=== PATIENT | male | born 1995 | race Caucasian/White ===

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

== ENCOUNTER 2017-01-19 21:21 | Emergency (ER) | payer OTHER ==
[~2017-01-19] VITALS: Ht 182.9 cm; Wt 56.8 kg
[~2017-01-19 21:21] MED LIST: IBUP-1022 PO; KEFL500C17 PO
[2017-01-19] MEDS ORDERED: ONDANSETRON 4MG/2ML VIAL (J2405) IV ONE (22:30)
[2017-01-19] MEDS ORDERED: NS 1,000 ML IV ONE (22:30)
[2017-01-19 22:48] LABS: BASO % 0.3 % (0.0-1.0); IMMATURE GRANULOCYTE % 0.3 % (0-0); LYMPH # 0.8 10^3/uL (1.5-6.5); MEAN CORPUSCULAR HEMOGLOBIN 29.4 pg (27.0-33.0); MEAN CORPUSCULAR HGB CONC 34.4 g/dl (32.0-36.5); MEAN CORPUSCULAR VOLUME 85.4 fl (80.0-96.0); MONO # 0.9 10^3/uL (0.0-0.8); MONO % 7.3 % (0.0-5.0); NEUTROPHILS # 10.1 10^3/uL (1.8-7.7); NEUTROPHILS % 85.1 % (36.0-66.0); PLATELET COUNT, AUTOMATED 251 10^3/uL (150-450); RED CELL DISTRIBUTION WIDTH 13.1 % (11.5-14.5); WHITE BLOOD COUNT 11.8 10^3/uL (4.0-10.0)
[2017-01-19 22:49] LABS: SUSPECT SAMPLE POS FLAG
[2017-01-19 23:16] LABS: ANION GAP 7 MEQ/L (8-16); BLOOD UREA NITROGEN 22 MG/DL (7-18); CARBON DIOXIDE LEVEL 30 MEQ/L (21-32); CHLORIDE LEVEL 102 MEQ/L (98-107); CREATININE FOR GFR 1.09 MG/DL (0.70-1.30); GLUCOSE, FASTING 111 MG/DL (70-105); POTASSIUM SERUM 4.3 MEQ/L (3.5-5.1); SODIUM LEVEL 139 MEQ/L (136-145)
[2017-01-19 23:17] LABS: ALBUMIN 4.8 GM/DL (3.2-5.2); ALBUMIN/GLOBULIN RATIO 1.55 (1.00-1.93); ALKALINE PHOSPHATASE 118 U/L (45-117); ALT/SGPT 27 U/L (12-78); AST/SGOT 18 U/L (7-37); BILIRUBIN,DIRECT 0.3 MG/DL (0.0-0.2); CALCIUM LEVEL 9.7 MG/DL (8.5-10.1); TOTAL PROTEIN 7.9 GM/DL (6.4-8.2)
[2017-01-19] MEDS ORDERED: ZOFR4TAB3 PO (23:30)
[2017-01-19] MEDS ORDERED: IBUP-1022 PO (23:30)
[2017-01-19 23:36] VITALS: BP 127/67
== END 2017-01-19 23:46 | disposition home or self-care (01) ==
LOC: M ED 21:21
DX: R10.84 Generalized abdominal pain (principal); R11.2 Nausea with vomiting, unspecified
CPT/HCPCS: 80048; 80076; 81001; 83690; 85025; 87804; 96361; 96374; 99284; J2405

== ENCOUNTER 2017-05-15 18:37 | Inpatient (IN) | payer MEDICAID, OTHER ==
[2017-05-15 18:05] LABS: HEMATOCRIT 43.8 % (42.0-52.0); HEMOGLOBIN 14.9 g/dl (14.0-18.0); MEAN CORPUSCULAR HEMOGLOBIN 29.3 pg (27.0-33.0); MEAN CORPUSCULAR VOLUME 86.1 fl (80.0-96.0); PLATELET COUNT, AUTOMATED 231 10^3/uL (150-450); RED BLOOD COUNT 5.09 10^6/uL (4.30-6.10); RED CELL DISTRIBUTION WIDTH 12.5 % (11.5-14.5); WHITE BLOOD COUNT 15.1 10^3/uL (4.0-10.0)
[2017-05-15 18:31] LABS: AMPHETAMINES LEVEL URINE NEGATIVE (NEGATIVE); BARBITURATES URINE NEGATIVE (NEGATIVE); BENZODIAZEPINES URINE NEGATIVE (NEGATIVE); CANNABINOIDS URINE POSITIVE (NEGATIVE); COCAINE METABOLITE URINE NEGATIVE (NEGATIVE); METHADONE URINE NEGATIVE (NEGATIVE); OPIATES URINE NEGATIVE (NEGATIVE); PHENCYCLIDINE URINE NEGATIVE (NEGATIVE)
[2017-05-15 18:40] LABS: ACETAMINOPHEN LEVEL < 2.0 UG/ML (10.0-30.0); ALBUMIN 4.4 GM/DL (3.2-5.2); ALBUMIN/GLOBULIN RATIO 1.52 (1.00-1.93); ALKALINE PHOSPHATASE 124 U/L (45-117); ALT/SGPT 18 U/L (12-78); ANION GAP 6 MEQ/L (8-16); AST/SGOT 15 U/L (7-37); BILIRUBIN,DIRECT 0.1 MG/DL (0.0-0.2); BILIRUBIN,TOTAL 0.4 MG/DL (0.2-1.0); BLOOD UREA NITROGEN 20 MG/DL (7-18); CALCIUM LEVEL 9.2 MG/DL (8.5-10.1); CARBON DIOXIDE LEVEL 29 MEQ/L (21-32); CHLORIDE LEVEL 106 MEQ/L (98-107); CREATININE FOR GFR 0.97 MG/DL (0.70-1.30); GLUCOSE, FASTING 111 MG/DL (70-100); POTASSIUM SERUM 3.9 MEQ/L (3.5-5.1); SALICYLATE LEVEL < 1.7 MG/DL (5.0-30.0); SODIUM LEVEL 141 MEQ/L (136-145); THYROID STIMULATING HORMONE 0.677 uIU/ML (0.463-3.98); TOTAL PROTEIN 7.3 GM/DL (6.4-8.2)
[2017-05-15 18:42] LABS: ETHYL ALCOHOL (ETHANOL) < 0.003 % (0.000-0.010)
[2017-05-15] MEDS ORDERED: traZODone 50 MG TAB PO (19:30)
[2017-05-15] MEDS ORDERED: MAALOX 30 ML SUSP *UDC PO (19:30)
[2017-05-15] MEDS ORDERED: ACETAMINOPHEN TAB 650MG DOSE (2X325MG) PO (19:30)
[2017-05-15] MEDS ORDERED: MOM 30ML SUSPENSION UDC PO (19:30)
[2017-05-16] MEDS: IBUPROFEN 600 MG TAB PO (10:20)
[2017-05-16] MEDS: QUEtiapine FUMARATE 50 MG TAB PO (21:23)
[2017-05-17] MEDS: IBUPROFEN 600 MG TAB PO (08:08)
[2017-05-17] MEDS: PALIPERIDONE 3 MG ER TAB (INVEGA) PO (20:48)
[2017-05-17] MEDS: QUEtiapine FUMARATE 50 MG TAB PO (20:48)
[2017-05-18] MEDS: PALIPERIDONE 3 MG ER TAB (INVEGA) PO ×2 (08:05→20:42)
[2017-05-18] MEDS ORDERED: PALIPERIDONE 3 MG ER TAB (INVEGA) PO (09:00)
[2017-05-18] MEDS: QUEtiapine FUMARATE 50 MG TAB PO (20:42)
[2017-05-19] MEDS: IBUPROFEN 600 MG TAB PO (08:14)
[2017-05-19] MEDS: PALIPERIDONE 3 MG ER TAB (INVEGA) PO (08:14)
== END 2017-05-19 14:07 | disposition home or self-care (01) | DRG 885 ==
LOC: M ED 18:37 → M ED INP 19:24 → M PSY 20:20
DX: F29 Unspecified psychosis not due to a substance or known physiological condition (principal); F19.94 Other psychoactive substance use, unspecified with psychoactive substance-induced mood disorder; F12.90 Cannabis use, unspecified, uncomplicated; Z88.2 Allergy status to sulfonamides; Z87.891 Personal history of nicotine dependence

== ENCOUNTER 2017-06-19 17:50 | Emergency (ER) | payer OTHER | END 2017-06-19 18:58 | disposition home or self-care (01) | LOC: M ED 17:50 | DX: Z76.0 Encounter for issue of repeat prescription (principal); F41.9 Anxiety disorder, unspecified; F33.9 Major depressive disorder, recurrent, unspecified; F20.9 Schizophrenia, unspecified; Z79.899 Other long term (current) drug therapy; Z88.2 Allergy status to sulfonamides | CPT/HCPCS: 99282 ==

== ENCOUNTER 2018-02-05 15:38 | Emergency (ER) | payer OTHER ==
[2018-02-05] MEDS: NAPROXEN 250 MG TAB PO (16:14)
== END 2018-02-05 17:05 | disposition home or self-care (01) ==
LOC: M ED 15:38
DX: S93.401A Sprain of unspecified ligament of right ankle, initial encounter (principal); X50.1XXA Overexertion from prolonged static or awkward postures, initial encounter; Y92.9 Unspecified place or not applicable; Y93.9 Activity, unspecified; Y99.9 Unspecified external cause status; F41.9 Anxiety disorder, unspecified; F20.9 Schizophrenia, unspecified; Z72.0 Tobacco use; Z88.2 Allergy status to sulfonamides
CPT/HCPCS: 73610

== ENCOUNTER 2018-06-12 23:49 | Emergency (ER) | payer OTHER ==
[~2018-06-12] VITALS: Ht 182.9 cm; Wt 59.1 kg
[~2018-06-12 23:49] MED LIST changes: +NAPR-837 PO; +PALI1TAB2 PO; +QUET5TAB PO; +RISP1TAB42 PO; +ZOFR4TAB14 PO
[2018-06-13] MEDS ORDERED: SERO50TA PO (00:07)
[2018-06-13 02:15] VITALS: BP 129/73
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
== END 2018-06-13 02:10 | disposition home or self-care (01) ==
LOC: M ED 23:49
DX: S63.92XA Sprain of unspecified part of left wrist and hand, initial encounter (principal); W51.XXXA Accidental striking against or bumped into by another person, initial encounter; Y92.099 Unspecified place in other non-institutional residence as the place of occurrence of the external cause; Y93.89 Activity, other specified; Y99.9 Unspecified external cause status; Z72.0 Tobacco use; F12.10 Cannabis abuse, uncomplicated; Z79.899 Other long term (current) drug therapy; Z88.2 Allergy status to sulfonamides

== ENCOUNTER 2018-07-29 23:55 | Emergency (ER) | payer OTHER ==
[~2018-07-29] VITALS: Ht 182.9 cm; Wt 59.1 kg
[~2018-07-29 23:55] MED LIST changes: +SERO50TA PO
[2018-07-30] MEDS ORDERED: TETANUS/DIPHTHERIA TOX ADSORB ADULT 0.5ML SYR/VIAL (90714) IM ONE (01:30)
[2018-07-30] MEDS ORDERED: ACETAMINOPHEN 500 MG TAB PO ONE (01:30)
[2018-07-30] MEDS ORDERED: IBUPROFEN 800 MG TAB PO ONE (01:45)
[2018-07-30] MEDS ORDERED: DERMABOND TOPICAL SKIN ADHESIVE TOP ONE (01:45)
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
[2018-07-30 03:30] VITALS: BP 130/76
== END 2018-07-30 03:33 | disposition home or self-care (01) ==
LOC: M ED 23:55
DX: S01.81XA Laceration without foreign body of other part of head, initial encounter (principal); Y04.8XXA Assault by other bodily force, initial encounter; Y92.410 Unspecified street and highway as the place of occurrence of the external cause; F29 Unspecified psychosis not due to a substance or known physiological condition; Z79.899 Other long term (current) drug therapy

== ENCOUNTER → 2019-08-08 | Outpatient (CLI) | payer OTHER ==
[2019-08-08 15:12] LABS: BASO % 0.5 % (0.0-1.0); EOS % 0.5 % (0.0-3.0); HEMATOCRIT 46.5 % (42.0-52.0); HEMOGLOBIN 15.2 g/dl (13.5-17.5); LYMPH # 1.8 10^3/uL (1.5-5.0); MEAN CORPUSCULAR HEMOGLOBIN 29.6 pg (27.0-33.0); MEAN CORPUSCULAR HGB CONC 32.7 g/dl (32.0-36.5); MEAN CORPUSCULAR VOLUME 90.5 fl (80.0-96.0); MONO # 0.7 10^3/uL (0.0-0.8); MONO % 11.6 % (0.0-5.0); NEUTROPHILS # 3.1 10^3/uL (1.5-8.5); NEUTROPHILS % 55.2 % (36.0-66.0); PLATELET COUNT, AUTOMATED 194 10^3/uL (150-450); RED BLOOD COUNT 5.14 10^6/uL (4.30-6.10); WHITE BLOOD COUNT 5.6 10^3/uL (4.0-10.0)
[2019-08-08 15:29] LABS: HEMOGLOBIN A1c 5.1 %
[2019-08-08 15:46] LABS: ALBUMIN 4.3 GM/DL (3.2-5.2); ALT/SGPT 18 U/L (12-78); BILIRUBIN,TOTAL 0.6 MG/DL (0.2-1.0); BLOOD UREA NITROGEN 15 MG/DL (7-18); CALCIUM LEVEL 8.8 MG/DL (8.5-10.1); CARBON DIOXIDE LEVEL 30 MEQ/L (21-32); CHLORIDE LEVEL 107 MEQ/L (98-107); CHOLESTEROL LEVEL 101 MG/DL (<200); CHOLESTEROL RISK RATIO 1.942 (<5); CREATININE FOR GFR 0.95 MG/DL (0.70-1.30); GLOMERULAR FILTRATION RATE > 60.0 (>60); GLUCOSE, FASTING 89 MG/DL (70-100); HDL CHOLESTEROL 52 MG/DL (>40); LDL CHOLESTEROL 43 MG/DL (<100); NON-HDL-C 49 MG/DL; SODIUM LEVEL 142 MEQ/L (136-145); THYROID STIMULATING HORMONE 0.795 uIU/ML (0.358-3.740); TOTAL PROTEIN 6.7 GM/DL (6.4-8.2); TRIGLYCERIDES LEVEL 29 MG/DL (<150)
[2019-08-08 15:47] LABS: TOTAL 25(OH) VITAMIN D 53.1 NG/ML (30.0-100.0); VITAMIN B12 LEVEL 345 PG/ML (247-911)
== END ==
LOC: M PLALAB 13:46
PROVIDERS: ATTEND Nurse Practitioner Psychiatric/Mental Health
DX: F12.20 Cannabis dependence, uncomplicated (principal); F28 Other psychotic disorder not due to a substance or known physiological condition

== ENCOUNTER 2019-10-19 16:01 | Emergency (ER) | payer OTHER ==
[~2019-10-19] VITALS: Ht 182.9 cm; Wt 61.3 kg
[2019-10-19] MEDS ORDERED: HYDR-3910 PO (16:24)
[2019-10-19] MEDS ORDERED: methylPREDNISolone 125MG 2ML VIAL IV ONE (17:30)
[2019-10-19] MEDS ORDERED: FAMOTIDINE INJ 20MG/2ML VIAL (S0028 PER 1) IVP ONE (17:30)
[2019-10-19] MEDS ORDERED: EPIP0.3I2 IM (19:27)
[2019-10-19 20:11] VITALS: BP 110/70
--- NOTE | 2019-11-01 10:17 | ECGEPIP ---
[facility] - ED Test Date: 2019-10-19 Pat Name: SHAYE OJEDA Department: Room: - Gender: Male Source [employer]: : 1995 Requested By: KAYKAY Lyon Order Number: [id number] Reading MD: Claudia Frederick Measurements Intervals [place] Rate: 70 P: 74 VA: 150 QRS: 69 QRSD: 121 T: 71 QT: 380 QTc: 411 Interpretive Statements SINUS RHYTHM POSSIBLE RIGHT VENTRICULAR CONDUCTION DELAY SEE SCANNED DOWNTIME REPORT
== END 2019-10-19 20:13 | disposition home or self-care (01) ==
LOC: M ED 16:01
DX: T63.441A Toxic effect of venom of bees, accidental (unintentional), initial encounter (principal); Y92.9 Unspecified place or not applicable; Y93.9 Activity, unspecified; Y99.9 Unspecified external cause status; F17.200 Nicotine dependence, unspecified, uncomplicated; Z88.1 Allergy status to other antibiotic agents; Z91.030 Bee allergy status
CPT/HCPCS: 93005; 93041; 94760; 96374; 99284; J2930

== ENCOUNTER 2020-07-10 18:37 | Emergency (ER) | payer OTHER ==
[~2020-07-10] VITALS: Ht 182.9 cm; Wt 59.1 kg
[~2020-07-10 18:37] MED LIST changes: +EPIP0.3I2 IM; +HYDR-3910 PO; +QUET50TA3 PO; -QUET5TAB PO
--- NOTE | 2020-07-10 20:08 | REP ---
INDICATION: testicular pain. COMPARISON: None. TECHNIQUE: Real-time sonographic evaluation of scrotum and contents performed. FINDINGS: The testicles are normal in size and echotexture, right testicle measuring 5.0 x 2.2 x 3.2 cm and left testicle 4.8 x 2.3 x 2.9 cm. There is no testicular mass or torsion. Blood flow is seen in each testicle with duplex Doppler evaluation. There is a 2 mm cyst in the right epididymis. There is a 3 mm calcification in the right scrotum. Prominent vessels in the left scrotum inferiorly suggest a small varicocele. IMPRESSION: No testicular mass or torsion. Small left varicocele. <Electronically signed by Kunal Gee > 07/10/202004
[2020-07-10 21:03] VITALS: BP 118/64
--- NOTE | 2020-07-10 21:49 | REPVR ---
PROCEDURE INFORMATION: Exam: US Pelvis Limited, Transabdominal, Soft tissue Exam date and time: 07/10/2020 8:42 PM Age: 25 years old Clinical indication: Pain; Other: Lt groin; Additional info: L inguinal pain following heavy lifting, RO hernia TECHNIQUE: Imaging protocol: Real-time transabdominal pelvic ultrasound with image documentation. Limited exam. Exam focused on the soft tissue. COMPARISON: Pelvis, limited US 12/03/2016 11:28 AM FINDINGS: Soft tissues: It appears that there are varices in the left inguinal canal similar to the ultrasound of 2017. I would recommend a CT scan of the pelvis with contrast for further evaluation of this. There is no evidence of hernia on the right. No herniated bowel can be identified on the left however there are the prominent vessels. IMPRESSION: Suspect varices at the left groin and recommend correlation with a CT scan of the pelvis with contrast. Electronically signed by: Adam Hernandez On 07/10/2020 21:48:49 PM
== END 2020-07-10 21:05 | disposition home or self-care (01) ==
LOC: M ED 18:37
DX: I86.1 Scrotal varices (principal); F20.9 Schizophrenia, unspecified; F33.9 Major depressive disorder, recurrent, unspecified; F41.9 Anxiety disorder, unspecified; Z79.899 Other long term (current) drug therapy; Z88.2 Allergy status to sulfonamides; Z91.030 Bee allergy status

== ENCOUNTER → 2020-07-15 | Outpatient (REF) | payer OTHER ==
[2020-07-15 12:55] LABS: APPEARANCE, URINE CLEAR (CLEAR); BACTERIA, URINE AUTO NEGATIVE (NEGATIVE); BILIRUBIN, URINE AUTO NEGATIVE (NEGATIVE); BLOOD, URINE BLOOD NEGATIVE (NEGATIVE); COLOR, URINE YELLOW (YELLOW); GLUCOSE, URINE (UA) AUTO NEGATIVE (NEGATIVE); KETONE, URINE AUTO NEGATIVE (NEGATIVE); LEUKOCYTE ESTERASE, URINE AUTO NEGATIVE (NEGATIVE); NITRITE, URINE AUTO NEGATIVE (NEGATIVE); PROTEIN, URINE AUTO NEGATIVE (NEGATIVE); RBC, URINE AUTO 0 /HPF (0-3); SPECIFIC GRAVITY URINE AUTO 1.024 (1.002-1.035); SQUAMOUS EPITHELIAL CELL UR AU 0 /HPF (0-6); UROBILINOGEN, URINE AUTO 0.2 mg/dL (0.0-2.0); WBC, URINE AUTO 0 /HPF (0-3)
== END ==
LOC: M SMT 12:33
PROVIDERS: ATTEND Nurse Practitioner Women's Health
DX: R10.30 Lower abdominal pain, unspecified (principal)

== ENCOUNTER → 2020-07-17 | Outpatient (CLI) | payer OTHER ==
[~2020-07-17] MED LIST changes: +ISOVUE-370 76% 100ML VIAL As Ordered ONE
--- NOTE | 2020-07-17 14:17 | REPVR ---
PROCEDURE INFORMATION: Exam: CT Pelvis With Contrast Exam date and time: 07/17/2020 1:52 PM Age: 25 years old Clinical indication: Other: Groin pain, varicocele TECHNIQUE: Imaging protocol: Computed tomography images of the pelvis with intravenous contrast. Radiation optimization: All CT scans at this facility use at least one of these dose optimization techniques: automated exposure control; mA and/or kV adjustment per patient size (includes targeted exams where dose is matched to clinical indication); or iterative reconstruction. Contrast material: ISOVUE 370; Contrast volume: 100 ml; Contrast route: INTRAVENOUS (IV); COMPARISON: Pelvis, limited US 07/10/2020 8:46 PM FINDINGS: Stomach and bowel: Prominent stool. Diverticula, without pericolonic inflammation. Appendix: No acute appendicitis. Intraperitoneal space: Small quantity of dependent free fluid in the pelvis. Lymph nodes: Subcentimeter lymph nodes. Urinary bladder: Bladder dilatation. Reproductive: Normal as visualized. Bones/joints: No acute osseous pathology. Soft tissues: No focal hernia. Mild infiltration of anterior subcutaneous fat. Other findings: Note evaluation of scrotal pathology is limited on CT. IMPRESSION: 1. Small quantity of dependent free fluid in the pelvis. 2. Additional findings as described above. Electronically signed by: Ever Flores On 07/17/2020 14:16:59 PM
== END ==
LOC: M RAD 13:33
PROVIDERS: ATTEND Nurse Practitioner Women's Health
DX: R10.30 Lower abdominal pain, unspecified (principal); I86.1 Scrotal varices
CPT/HCPCS: 72193; Q9967

== ENCOUNTER 2021-02-27 11:06 | Emergency (ER) | payer OTHER ==
[~2021-02-27] VITALS: Ht 182.9 cm; Wt 57.4 kg
[~2021-02-27 11:06] MED LIST changes: -ISOVUE-370 76% 100ML VIAL As Ordered ONE; -QUET50TA3 PO; +QUET50TA4 PO
[2021-02-27] MEDS ORDERED: OMEP-218 (11:30)
[2021-02-27] MEDS ORDERED: HYDR-3363 (11:30)
[2021-02-27] MEDS ORDERED: ZOFR4TAB16 PO (16:10)
[2021-02-27] MEDS ORDERED: ONDANSETRON 4 MG ORAL DISINTEGRATING TAB PO ONE (16:10)
[2021-02-27 16:38] VITALS: BP 134/89
== END 2021-02-27 16:38 | disposition home or self-care (01) ==
LOC: M ED 11:06
DX: J06.9 Acute upper respiratory infection, unspecified (principal); R11.2 Nausea with vomiting, unspecified; Z88.0 Allergy status to penicillin; Z88.2 Allergy status to sulfonamides; Z79.899 Other long term (current) drug therapy
CPT/HCPCS: 99283; Q0162; U0003

== ENCOUNTER → 2021-07-08 | Outpatient (CLI) | payer OTHER ==
[~2021-07-08] MED LIST changes: +HYDR-3363; +OMEP-173; +ZOFR4TAB16 PO
== END ==
LOC: M EKG 10:31
PROVIDERS: ATTEND Nurse Practitioner Psychiatric/Mental Health
DX: F90.0 Attention-deficit hyperactivity disorder, predominantly inattentive type (principal)

== ENCOUNTER → 2022-08-05 | Outpatient (REF) | payer OTHER ==
[2022-08-07 06:09] LABS: MUMPS VIRUS IgG ANTIBODY <9.0 AU/mL (Immune >10.9); RUBEOLA IgG ANTIBODY 47.9 AU/mL (Immune >16.4)
== END ==
LOC: M LAB REF 16:21
PROVIDERS: ATTEND Family Medicine Addiction Medicine
DX: Z76.89 Persons encountering health services in other specified circumstances (principal)

== ENCOUNTER 2023-03-26 08:47 | Inpatient (IN) | payer MEDICAID, OTHER ==
[~2023-03-26] VITALS: Ht 182.9 cm; Wt 62.2 kg
[~2023-03-26 08:47] MED LIST changes: -OMEP-173; +OMEP-173 PO
[2023-03-26] MEDS ORDERED: MED REC IN PROGRESS XX SCH (09:40)
[2023-03-26 10:10] LABS: HEMOGLOBIN 16.1 g/dl (13.5-17.5); MEAN CORPUSCULAR HEMOGLOBIN 29.9 pg (27.0-33.0); MEAN CORPUSCULAR VOLUME 85.5 fl (80.0-96.0); PLATELET COUNT, AUTOMATED 245 10^3/uL (150-450); RED BLOOD COUNT 5.38 10^6/uL (4.30-6.10); WHITE BLOOD COUNT 6.2 10^3/uL (4.0-10.0)
[2023-03-26 10:39] LABS: ETHYL ALCOHOL (ETHANOL) < 0.003 % (0.000-0.010)
[2023-03-26 10:40] LABS: ALBUMIN 4.4 G/DL (3.2-5.2); ALKALINE PHOSPHATASE 94 U/L (46-116); ALT/SGPT 28 U/L (7.0-40); AST/SGOT 24 U/L (<34); BILIRUBIN,DIRECT 0.3 MG/DL (<0.4); BILIRUBIN,TOTAL 0.9 MG/DL (0.3-1.2); BLOOD UREA NITROGEN 21 MG/DL (9-23); CALCIUM LEVEL 9.5 MG/DL (8.5-10.1); CARBON DIOXIDE LEVEL 26 MMOL/L (20-31); CHLORIDE LEVEL 104 MMOL/L (98-107); CREATININE FOR GFR 0.92 MG/DL (0.70-1.30); GLOMERULAR FILTRATION RATE > 60.0 (>60); GLUCOSE, FASTING 102 MG/DL (60-100); SALICYLATE LEVEL < 3.0 MG/DL (<30); SODIUM LEVEL 139 MMOL/L (136-145); TOTAL PROTEIN 7.3 G/DL (5.7-8.2)
[2023-03-26 10:43] LABS: THYROID STIMULATING HORMONE 1.452 uIU/ML (0.55-4.78)
[2023-03-26 11:27] LABS: AMPHETAMINES LEVEL URINE NEGATIVE (NEGATIVE); BARBITURATES URINE NEGATIVE (NEGATIVE); BENZODIAZEPINES URINE NEGATIVE (NEGATIVE); COCAINE METABOLITE URINE NEGATIVE (NEGATIVE); METHADONE URINE NEGATIVE (NEGATIVE); OPIATES URINE NEGATIVE (NEGATIVE); PHENCYCLIDINE URINE NEGATIVE (NEGATIVE)
[2023-03-26 11:33] LABS: CANNABINOIDS URINE POSITIVE (NEGATIVE)
[2023-03-26] MEDS ORDERED: ALBU8.5H INH (11:40)
[2023-03-26] MEDS ORDERED: traZODone 50 MG TAB PO PRN (11:40)
[2023-03-26] MEDS ORDERED: diphenhydrAMINE 25MG CAP PO PRN (11:40)
[2023-03-26] MEDS ORDERED: MOM 30ML SUSPENSION UDC PO PRN (11:40)
[2023-03-26] MEDS ORDERED: OLANZapine 5 MG TAB PO PRN (11:40)
[2023-03-26] MEDS ORDERED: IBUPROFEN 400MG TAB PO PRN (11:40)
[2023-03-26] MEDS ORDERED: ACETAMINOPHEN TAB 650MG DOSE (2X325MG) PO PRN (11:40)
[2023-03-26] MEDS ORDERED: MAALOX 30 ML SUSP *UDC PO PRN (11:40)
[2023-03-26] MEDS ORDERED: HOME MED LIST COMPLETE! XX SCH (11:45)
[2023-03-26] MEDS: NICOTINE 21MG/24HR 1 EA TRANSDERMAL TD ONE (12:26)
[2023-03-26] MEDS: OMEPRAZOLE 20MG CAP PO SCH (22:31)
[2023-03-26] MEDS: RAMELTEON 8 MG TAB (ROZEREM) PO PRN (22:31)
[2023-03-27 06:36] VITALS: BP 120/69; TEMP 98.4; O2SAT 98
[2023-03-27 09:00] VITALS: BP 120/69; TEMP 98.4; O2SAT 98
[2023-03-27] MEDS ORDERED: ALBUTEROL 90 MCG/ACT 8GM HFA INHALER INH STA (14:34)
[2023-03-27 14:40] VITALS: BP 143/94; TEMP 99.4; O2SAT 100
[2023-03-27] MEDS: ALBUTEROL 90 MCG/ACT 8GM HFA INHALER INH STA (14:43)
[2023-03-27] MEDS: NICOTINE 21MG/24HR 1 EA TRANSDERMAL TD SCH (15:08)
[2023-03-27 16:59] VITALS: BP 127/81; TEMP 97.6; O2SAT 100
[2023-03-27] MEDS: ALBUTEROL 90 MCG/ACT 8GM HFA INHALER INH PRN (21:05)
[2023-03-28] MEDS ORDERED: OMEPRAZOLE 20MG CAP PO SCH (09:00)
[2023-03-28] MEDS: OMEPRAZOLE 20MG CAP PO SCH (10:46)
[2023-03-28 17:00] VITALS: BP 132/92; TEMP 98.6; O2SAT 100
[2023-03-29] MEDS: OLANZapine 5 MG TAB PO SCH (10:54)
[2023-03-29 18:16] VITALS: BP 134/95; TEMP 97.3; O2SAT 99
[2023-03-30 06:40] VITALS: BP 137/75; TEMP 97.8; O2SAT 100
[2023-03-30] MEDS ORDERED: OMEP-173 PO (09:49)
[2023-03-30] MEDS ORDERED: RAME8TAB2 PO (09:49)
[2023-03-30] MEDS ORDERED: NICO21PAT TD (09:49)
[2023-03-30] MEDS ORDERED: OLAN1TAB16 PO (09:49)
== END 2023-03-30 11:28 | disposition home or self-care (01) | DRG 750 ==
LOC: M ED 08:47 → M ED INP 11:39 → M PSY 13:08
PROVIDERS: ADMIT Student in an Organized Health Care Education/Training Program; ATTEND Student in an Organized Health Care Education/Training Program
DX: F20.9 Schizophrenia, unspecified (principal); F12.90 Cannabis use, unspecified, uncomplicated; U07.1 COVID-19; R45.851 Suicidal ideations; R45.850 Homicidal ideations; Z91.030 Bee allergy status; Z88.2 Allergy status to sulfonamides; Z79.899 Other long term (current) drug therapy; K21.9 Gastro-esophageal reflux disease without esophagitis; J45.909 Unspecified asthma, uncomplicated; F17.200 Nicotine dependence, unspecified, uncomplicated

== ENCOUNTER 2023-06-02 10:18 | Emergency (ER) | payer MEDICAID, OTHER ==
[~2023-06-02] VITALS: Ht 182.9 cm; Wt 64.6 kg
[~2023-06-02 10:18] MED LIST changes: +ALBU8.5H INH; -HYDR-3910 PO; +HYDR25TA87 PO; +NICO21PAT TD; +OLAN1TAB16 PO; +RAME8TAB2 PO
[2023-06-02 10:19] VITALS: BP 136/68; TEMP 97.6; O2SAT 100
[2023-06-02] MEDS ORDERED: CVS1CRE56 TOP (11:52)
== END 2023-06-02 12:24 | disposition left against medical advice (07) ==
LOC: M ED 12:03
DX: Z53.21 Procedure and treatment not carried out due to patient leaving prior to being seen by health care provider (principal)

== ENCOUNTER 2024-06-23 12:30 | Emergency (ER) | payer OTHER ==
[~2024-06-23] VITALS: Ht 182.9 cm; Wt 59.0 kg
[~2024-06-23 12:30] MED LIST changes: +CLOT15CR4 TOP
[2024-06-23 13:26] LABS: HEMATOCRIT 48.9 % (42.0-52.0); HEMOGLOBIN 17.1 g/dl (13.5-17.5); MEAN CORPUSCULAR HEMOGLOBIN 29.1 pg (27.0-33.0); MEAN CORPUSCULAR VOLUME 83.3 fl (80.0-96.0); PLATELET COUNT, AUTOMATED 300 10^3/uL (150-450); RED BLOOD COUNT 5.87 10^6/uL (4.30-6.10); WHITE BLOOD COUNT 20.1 10^3/uL (4.0-10.0)
[2024-06-23 13:39] LABS: LIPASE 22 U/L (12-53)
[2024-06-23 13:42] LABS: ALBUMIN 5.3 G/DL (3.2-5.2); ALKALINE PHOSPHATASE 116 U/L (40-129); ALT/SGPT 25 U/L (7.0-40); AST/SGOT 24 U/L (<34); BILIRUBIN,DIRECT 0.4 MG/DL (<0.4); BILIRUBIN,TOTAL 1.1 MG/DL (0.3-1.2); BLOOD UREA NITROGEN 23 MG/DL (9-23); CALCIUM LEVEL 11.1 MG/DL (8.5-10.1); CARBON DIOXIDE LEVEL 22 MMOL/L (20-31); CHLORIDE LEVEL 104 MMOL/L (98-107); CREATININE FOR GFR 1.11 MG/DL (0.70-1.30); GLOMERULAR FILTRATION RATE > 90.0 (>60); GLUCOSE, FASTING 124 MG/DL (60-100); SODIUM LEVEL 142 MMOL/L (136-145); TOTAL PROTEIN 8.1 G/DL (5.7-8.2)
[2024-06-23 13:50] LABS: ATYPICAL LYMPH 5 % (0-5); LYMPHOCYTES 6 % (16-44); MONOCYTES 8 % (0-5); NEUTROPHILS 79 % (28-66)
[2024-06-23 13:51] LABS: PLATELET ESTIMATE NORMAL (NORMAL)
[2024-06-23] MEDS: NS (Normal Saline) 0.9% 1,000 ML IV ONE (15:18)
[2024-06-23] MEDS: METOCLOPRAMIDE INJ 10MG/2ML VIAL IV ONE (15:18)
[2024-06-23 16:24] LABS: MAGNESIUM LEVEL 1.9 MG/DL (1.8-2.4)
[2024-06-23 16:26] LABS: C REACTIVE PROTEIN QUANTITATIV < 0.50 MG/DL (<1.0)
[2024-06-23 16:32] LABS: CPK CREATINE PHOSPHOKINASE 161 U/L (46-171)
[2024-06-23] MEDS ORDERED: REGL10TA6 PO (17:08)
[2024-06-23 17:27] VITALS: BP 100/52; TEMP 99.7; O2SAT 100
== END 2024-06-23 17:28 | disposition home or self-care (01) ==
LOC: M ED 12:30
DX: F12.188 Cannabis abuse with other cannabis-induced disorder (principal); F19.10 Other psychoactive substance abuse, uncomplicated; Z88.2 Allergy status to sulfonamides; Z91.030 Bee allergy status; Z79.52 Long term (current) use of systemic steroids; Z79.899 Other long term (current) drug therapy
CPT/HCPCS: 36415; 80048; 80076; 82550; 83605; 83690; 83735; 85025; 86140; 87040; 96361; 96374; 99284; J2765